=== PATIENT | female | born 1950 | race Caucasian/White ===

== ENCOUNTER → 2024-09-15 15:08 | Outpatient (CLI) | payer MEDICARE, MEDICAID, SELFPAY ==
--- NOTE | 2024-09-15 15:13 | DI.US.S_ITS ---
PROCEDURE: US RENAL COMPLETE INDICATIONS: Acute kidney injury TECHNIQUE: Real-time scanning was performed of the kidneys and bladder, with image documentation. COMPARISON: None. FINDINGS: Kidneys: Kidneys are normal in size. Right kidney measures 9.4 cm long; left kidney measures 7.8 cm long. Right renal cortical thickness is 1.2 cm; left renal cortical thickness is 1.3 cm. Renal cortical echotexture is normal. No hydronephrosis or nephrolithiasis. No suspicious solid mass lesions. Bladder: Pre-void bladder volume is 92 mL. Post-void residual is 0 mL. Pre- void images demonstrate no intraluminal masses or stones. On pre-void images, bilateral ureteral jets are noted with color Doppler interrogation. (Of note, ureteral jets may not be detectable in up to 25% of cases due to insufficient differences in specific gravity between ureteral and bladder urine). Miscellaneous: No free pelvic fluid. IMPRESSION: Normal ultrasound of the kidneys Approved by: Buck Fry M.D. on 09/16/2024 at 10:00
== END ==
PROVIDERS: PCP Registered Nurse; Referring Provider Registered Nurse; Visit Provider Registered Nurse
DX: N17.9 Acute kidney failure, unspecified (principal); I50.9 Heart failure, unspecified
CPT/HCPCS: 76770

== ENCOUNTER → 2024-12-16 14:54 | Outpatient (CLI) | payer MEDICARE, MEDICAID, SELFPAY ==
--- NOTE | 2024-12-16 14:58 | DI.MRI.S_ITS ---
PROCEDURE: MR LUMBAR SPINE WO CON INDICATIONS: Osteoarthritis TECHNIQUE: Noncontrast sagittal T1 spin echo and T2 fast echo, sagittal STIR, and T2 fast spin echo through the lumbar spine. In cases with scoliosis, additional coronal T2 fast spin echo may be performed. COMPARISON: None. FINDINGS: Image quality: Excellent Levoscoliosis of the lumbar spine, centered at L2. Mild retrolisthesis of L1 on L2. Grade 1 anterolisthesis L4 on L5. Mild retrolisthesis of L5 on S1. Multiple small Schmorl's node. Vertebral body height of the lumbar spine are otherwise well maintained. Multilevel mild fibrovascular end plate change. Multilevel disc desiccation and disc bulge. Conus terminates at the level of T12-L1, and is unremarkable. Right neural foraminal stenosis: Mild at L2-3, moderate at L3-4, mild at L4-5, L5-S1. Left neural foraminal stenosis: Mild at L2-3, L3-4, mild to moderate at L4-5. Axial images: T12-L1: Mild bilateral facet arthropathy. Mild disc bulge. No central canal stenosis. L1-2: Mild bilateral facet arthropathy. Mild disc bulge. No central canal stenosis. L2-3: Severe bilateral facet arthropathy. Disc bulge. Moderate central canal stenosis. L3-4: Severe bilateral facet arthropathy. Disc bulge. moderate central canal stenosis. L4-5: Severe bilateral facet arthropathy. Disc bulge. Moderate to severe central canal stenosis. L5-S1: Moderate bilateral facet arthropathy. Disc bulge. No central canal stenosis. Chronic minimally impacted fracture of S2 vertebral body. There are mild marrow edema of bilateral sacral alar, incompletely evaluated. No abdominal aortic aneurysm. IMPRESSION: 1. Degenerative changes, most pronounced at L4-5, where there is moderate to severe central canal stenosis. 2. Up to moderate neural from stenosis as described above. 3. Mild marrow edema bilateral sacral alar, incompletely evaluated. Underlying fracture cannot be excluded. Recommend further evaluation with sacral MR or CT if clinically indicated. Dictated by: Karen Palomo M.D. on 12/16/2024 at 16:41 Approved by: Karen Palomo M.D. on 12/16/2024 at 17:02
== END ==
LOC: MRI 14:58
PROVIDERS: PCP Registered Nurse; Referring Provider Registered Nurse; Visit Provider Registered Nurse
DX: M47.816 Spondylosis without myelopathy or radiculopathy, lumbar region (principal); M47.817 Spondylosis without myelopathy or radiculopathy, lumbosacral region; M48.061 Spinal stenosis, lumbar region without neurogenic claudication; M51.360 Other intervertebral disc degeneration, lumbar region with discogenic back pain only; M51.370 Other intervertebral disc degeneration, lumbosacral region with discogenic back pain only
CPT/HCPCS: 72148